=== PATIENT | female | born 1965 | race American Indian/Alaskan Native ===

== ENCOUNTER 2024-08-24 17:53 | Emergency (ER) | payer BC ==
[~2024-08-24] VITALS: Ht 144.8 cm; Wt 66.7 kg
[2024-08-24] MEDS ORDERED: Ketorolac Tromethamine 15mg Vial IM ONE (20:40)
== END 2024-08-24 21:26 | disposition home or self-care (01) ==
LOC: ER 17:53
DX: S76.011A Strain of muscle, fascia and tendon of right hip, initial encounter (principal); X58.XXXA Exposure to other specified factors, initial encounter; Y99.0 Civilian activity done for income or pay
CPT/HCPCS: 73502; 96372; 99283-25; J1885